=== PATIENT | female | born 1965 | race Caucasian/White ===

== ENCOUNTER → 2018-03-07 | Outpatient (CLI) | payer BC ==
[~2018-03-07] VITALS: Ht 171.4 cm; Wt 133.4 kg
[~2018-03-07] MED LIST: ADIPEX-P37.5 MG PO; FLONASEALLERGY NS; MUCINEX 60600 MG/TA1 PO; PROZAC40 MG PO; ZYRTEC 10MG10 MG PO
[2018-03-07 10:24] VITALS: BP 118/74; PULSE 68
== END ==
LOC: LIGHT 09:57
DX: F32.9 Major depressive disorder, single episode, unspecified (principal); E78.5 Hyperlipidemia, unspecified; E66.01 Morbid (severe) obesity due to excess calories; Z68.42 Body mass index [BMI] 45.0-49.9, adult; Z71.3 Dietary counseling and surveillance
CPT/HCPCS: G0463

== ENCOUNTER → 2018-04-09 | Outpatient (CLI) | payer BC | LOC: LIGHT 13:49 | DX: E78.5 Hyperlipidemia, unspecified (principal); F32.9 Major depressive disorder, single episode, unspecified; E66.01 Morbid (severe) obesity due to excess calories; Z68.42 Body mass index [BMI] 45.0-49.9, adult; Z71.3 Dietary counseling and surveillance ==

== ENCOUNTER → 2018-04-11 | Outpatient (CLI) | payer BC ==
[~2018-04-11] VITALS: Ht 171.4 cm; Wt 133.6 kg
[2018-04-11 15:27] VITALS: BP 116/82; PULSE 80
== END ==
LOC: LIGHT 15:22
DX: E78.5 Hyperlipidemia, unspecified (principal); F32.9 Major depressive disorder, single episode, unspecified; E66.01 Morbid (severe) obesity due to excess calories; Z68.42 Body mass index [BMI] 45.0-49.9, adult; Z71.3 Dietary counseling and surveillance
CPT/HCPCS: G0463

== ENCOUNTER → 2018-04-19 | Outpatient (CLI) | payer BC | LOC: BHSO 13:59 | DX: Z01.818 Encounter for other preprocedural examination (principal) ==

== ENCOUNTER → 2018-05-23 | Outpatient (CLI) | payer BC ==
[~2018-05-23] VITALS: Ht 171.4 cm; Wt 131.8 kg
[2018-05-23 10:05] VITALS: BP 108/70; PULSE 64
== END ==
LOC: LIGHT 09:58
DX: F32.9 Major depressive disorder, single episode, unspecified (principal); E78.5 Hyperlipidemia, unspecified; E66.01 Morbid (severe) obesity due to excess calories; Z68.42 Body mass index [BMI] 45.0-49.9, adult; Z71.3 Dietary counseling and surveillance
CPT/HCPCS: G0463

== ENCOUNTER → 2018-08-29 | Outpatient (CLI) | payer BC ==
[~2018-08-29] VITALS: Ht 171.4 cm; Wt 132.4 kg
[2018-08-29 09:55] VITALS: BP 126/76; PULSE 72
== END ==
LOC: LIGHT 06-27 11:22
DX: F32.9 Major depressive disorder, single episode, unspecified (principal); E78.5 Hyperlipidemia, unspecified; E66.01 Morbid (severe) obesity due to excess calories; Z68.42 Body mass index [BMI] 45.0-49.9, adult; Z71.3 Dietary counseling and surveillance
CPT/HCPCS: G0463

== ENCOUNTER → 2018-10-10 | Outpatient (CLI) | payer BC ==
[~2018-10-10] VITALS: Ht 171.4 cm; Wt 134.5 kg
[2018-10-10 14:50] VITALS: BP 140/86; PULSE 76
== END ==
LOC: LIGHT 13:28
DX: F32.9 Major depressive disorder, single episode, unspecified (principal); E78.5 Hyperlipidemia, unspecified; E66.01 Morbid (severe) obesity due to excess calories; Z68.42 Body mass index [BMI] 45.0-49.9, adult; Z71.3 Dietary counseling and surveillance
CPT/HCPCS: G0463

== ENCOUNTER → 2018-12-19 | Outpatient (CLI) | payer BC ==
[~2018-12-19] VITALS: Ht 171.4 cm; Wt 131.1 kg
[2018-12-19 10:05] VITALS: BP 142/86; PULSE 80
== END ==
LOC: LIGHT 11-14 13:15
DX: F32.9 Major depressive disorder, single episode, unspecified (principal); E78.5 Hyperlipidemia, unspecified; E66.01 Morbid (severe) obesity due to excess calories; Z68.41 Body mass index [BMI] 40.0-44.9, adult; Z71.3 Dietary counseling and surveillance
CPT/HCPCS: G0463

== ENCOUNTER → 2019-02-27 | Outpatient (CLI) | payer BC ==
[~2019-02-27] VITALS: Ht 171.4 cm; Wt 133.4 kg
[~2019-02-27] MED LIST changes: +TOPAMAX 25MG25 M1 PO
[2019-02-27 15:13] VITALS: BP 124/80; PULSE 84
== END ==
LOC: LIGHT 01-30 14:24
DX: F32.9 Major depressive disorder, single episode, unspecified (principal); E78.5 Hyperlipidemia, unspecified; E66.01 Morbid (severe) obesity due to excess calories; Z68.42 Body mass index [BMI] 45.0-49.9, adult; Z71.3 Dietary counseling and surveillance
CPT/HCPCS: G0463

== ENCOUNTER → 2019-05-15 | Outpatient (CLI) | payer BC ==
[~2019-05-15] VITALS: Ht 171.4 cm; Wt 131.8 kg
[2019-05-15 13:20] VITALS: BP 124/80; PULSE 60
== END ==
LOC: LIGHT 04-03 10:31
DX: F32.9 Major depressive disorder, single episode, unspecified (principal); E78.5 Hyperlipidemia, unspecified; E66.01 Morbid (severe) obesity due to excess calories; Z68.41 Body mass index [BMI] 40.0-44.9, adult; Z71.3 Dietary counseling and surveillance
CPT/HCPCS: G0463

== ENCOUNTER → 2019-05-23 | Outpatient (CLI) | payer BC | LOC: BHSO 08:59 | DX: F41.1 Generalized anxiety disorder (principal) ==

== ENCOUNTER → 2019-06-26 | Outpatient (CLI) | payer BC ==
[~2019-06-26] MED LIST changes: -TOPAMAX 25MG25 M1 PO; +TOPAMAX50 MG PO
== END ==
LOC: BHSO 09:03
DX: F41.1 Generalized anxiety disorder (principal)

== ENCOUNTER → 2019-07-29 | Outpatient (CLI) | payer BC | LOC: BHSO 14:58 | DX: F41.1 Generalized anxiety disorder (principal) ==

== ENCOUNTER → 2019-08-26 | Outpatient (CLI) | payer BC | LOC: BHSO 14:58 | DX: F41.1 Generalized anxiety disorder (principal) ==

== ENCOUNTER → 2019-09-02 | Outpatient (CLI) | payer BC | LOC: MC.RAD 07:30 | DX: Z12.31 Encounter for screening mammogram for malignant neoplasm of breast (principal) ==

== ENCOUNTER → 2020-04-08 | Outpatient (CLI) | payer BC ==
[~2020-04-08] VITALS: Ht 171.4 cm; Wt 129.0 kg
[2020-04-08 11:32] VITALS: BP 130/90; PULSE 80
== END ==
LOC: LIGHT 02-19 10:52
DX: E66.01 Morbid (severe) obesity due to excess calories (principal); Z68.41 Body mass index [BMI] 40.0-44.9, adult; E78.5 Hyperlipidemia, unspecified; F32.9 Major depressive disorder, single episode, unspecified
CPT/HCPCS: G0463

== ENCOUNTER → 2020-05-06 | Outpatient (CLI) | payer BC ==
[~2020-05-06] VITALS: Ht 171.4 cm; Wt 131.1 kg
[2020-05-06 13:58] VITALS: BP 128/70; PULSE 92
== END ==
LOC: LIGHT 14:00
DX: E66.01 Morbid (severe) obesity due to excess calories (principal); Z68.41 Body mass index [BMI] 40.0-44.9, adult; E78.5 Hyperlipidemia, unspecified
CPT/HCPCS: G0463

== ENCOUNTER 2023-10-16 06:43 | Day surgery (SDC) | payer BC ==
[~2023-10-16] VITALS: Ht 175.3 cm; Wt 117.9 kg
[~2023-10-16 06:43] MED LIST changes: +LR 1,000 ML IV SCH; +Ondansetron 4 MG/2 ML VIAL IV PRN
[2023-10-16] MEDS ORDERED: SINGULAIR 110 MG/TAB PO (07:29)
[2023-10-16] MEDS ORDERED: PROAIR DIGIHAL90 MCG IH (07:30)
--- NOTE | 2023-10-16 07:31 | NUR ---
Pt arrived with , escorted pt to bay 2, VS WNL with exception of BP which is elevated, pt states she last took her BP medication Sunday. Reviewed and signed consents; reviewed meds/pharm/allergies/history. Bowels are WNL for the procedure. IV to RFA, 22G, and LR hanging.
[2023-10-16 07:33] VITALS: BP 153/101; PULSE 76; TEMP 97.6
[2023-10-16] MEDS ORDERED: Glycopyrrolate 0.2 MG/ML 1 ML VIAL ONE (08:06)
[2023-10-16] MEDS ORDERED: Lidocaine PF 2% (20 MG/ML) 5 ML VIAL ONE (08:28)
[2023-10-16 08:45] VITALS: BP 146/88; PULSE 64; TEMP 97.6
[2023-10-16 09:00] VITALS: BP 135/85; PULSE 68
[2023-10-16 09:15] VITALS: BP 123/103; PULSE 61
--- NOTE | 2023-10-16 09:34 | NUR ---
0845- PATIENT RETURNS TO [facility] VIA CART. PT AWAKE AND ALERT. RESPIRATIONS UNLABORED. AMBULATED TO RECLINER CHAIR WITH 2:1 SBA. PT DENIES NAUSEA OR ABDOMINAL PAIN. HOOKED UP TO MONITOR AND VS OBTAINED. CALL LIGHT AT SIDE AND PRESENT. 0855- PATIENT TOLERATING CRANBERRY JUICE AND MUFFIN WITHOUT NAUSEA OR DIFFICULTY SWALLOWING. 0912- D/C INSTRUCTIONS REVIEWED WITH PATIENT. PT VERBALIZED UNDERSTANDING AND A COPY OF INSTRUCTIONS PROVIDED IN D/C FOLDER. 0918- DR. ROJAS IN ROOM SPEAKING WITH PATIENT. 0925- PATIENT DRESSES SELF. 0934- PATIENT DISCHARGED FROM UNIT VIA W/C TO A PERSONAL VEHICLE. PT LEFT HOSPITAL IN STABLE CONDITION.
== END 2023-10-16 09:34 | disposition home or self-care (01) ==
LOC: SDCO 06:43
DX: K29.50 Unspecified chronic gastritis without bleeding (principal); K21.00 Gastro-esophageal reflux disease with esophagitis, without bleeding; K63.5 Polyp of colon; D50.9 Iron deficiency anemia, unspecified; K44.9 Diaphragmatic hernia without obstruction or gangrene; K64.0 First degree hemorrhoids; Z80.0 Family history of malignant neoplasm of digestive organs; Z79.899 Other long term (current) drug therapy
CPT/HCPCS: J2704; J7120

== ENCOUNTER 2024-01-29 10:21 | Day surgery (SDC) | payer BC ==
[~2024-01-29] VITALS: Ht 170.2 cm; Wt 122.5 kg
[2024-01-29] VITALS (14 sets, daily range): BP systolic 152–170; BP diastolic 69–99; PULSE 69–88; TEMP 97.5–97.9
[~2024-01-29 10:21] MED LIST changes: -Ondansetron 4 MG/2 ML VIAL IV PRN; +PRIL40 PO; +PROAIR DIGIHAL90 MCG IH; +SINGULAIR 110 MG/TAB PO; +Scopolamine 1 MG Delivered 3-Day PATCH TD SCH
[2024-01-29] MEDS ORDERED: PROZAC 20MG20 MG PO (11:08)
[2024-01-29] MEDS ORDERED: TOPAMAX 25MG25 M1 PO (11:09)
[2024-01-29] MEDS ORDERED: TIROSINT25 MC1 PO (11:11)
[2024-01-29] MEDS ORDERED: LIPITOR 40MG TA40 MG PO (11:12)
[2024-01-29] MEDS ORDERED: MULTI VITAMINS1 TAB PO (11:14)
[2024-01-29] MEDS ORDERED: fentaNYL 50 MCG/ML 5 ML VIAL ONE (12:04)
[2024-01-29] MEDS ORDERED: Lidocaine PF 2% (20 MG/ML) 5 ML VIAL ONE (12:04)
[2024-01-29] MEDS ORDERED: Rocuronium 50 MG/5 ML Multi-Dose VIAL ONE ×2 (12:04→13:46)
[2024-01-29] MEDS ORDERED: Topical Skin Adhesive 1 EACH (1 ML) TOP ONE (12:15)
[2024-01-29 12:24] LABS: BASO # 0.1 K/mm3 (0.0-0.2); EOS # 0.4 K/mm3 (0.0-0.7); EOS % 5.2 % (0.0-4.0); GRAN # 3.7 K/mm3 (1.4-6.5); GRAN % 51.9 % (42.2-75.2); HEMOGLOBIN 11.4 g/dl (12.5-16.0); LYMPH # 2.2 K/mm3 (1.2-3.4); LYMPH % 30.4 % (20.0-51.0); MEAN CELL VOLUME 90 fl (80.0-100.0); MEAN CORPUSCULAR HEMOGLOBIN 29 pg (27-31); MEAN CORPUSCULAR HGB CONC 33 g/dl (33.0-37.0); MEAN PLATELET VOLUME 8.7 fl (7.4-10.4); MONO # 0.8 K/mm3 (0.1-0.6); MONO % 11.4 % (1.7-9.3); PLATELET COUNT 341 K/mm3 (130-400); RED BLOOD COUNT 3.92 M/mm3 (4.10-5.30)
[2024-01-29 12:27] LABS: HEMATOCRIT 35.1 % (37.0-47.0)
[2024-01-29 12:30] LABS: CALCIUM 9.6 mg/dL (8.4-10.2); CREATININE, serum 0.79 mg/dL (0.57-1.11); POTASSIUM 3.8 mEq/L (3.5-4.5)
[2024-01-29] MEDS ORDERED: fentaNYL 50 MCG/ML 1 ML SYRINGE/VIAL [PACU/SDC ONLY] IV PRN (12:30)
[2024-01-29] MEDS ORDERED: Ondansetron 4 MG/2 ML VIAL IV PRN ×2 (12:30→16:15)
[2024-01-29] MEDS ORDERED: hydrALAZINE 20 MG/ML 1 ML VIAL IV PRN (12:30)
[2024-01-29] MEDS ORDERED: Meperidine 50 MG/ML 1 ML VIAL IV PRN (12:30)
[2024-01-29] MEDS ORDERED: HYDROmorphone 1 MG/1 ML SYRINGE [PACU/SDC ONLY] IV PRN (12:30)
[2024-01-29] MEDS ORDERED: Ondansetron 4 MG/2 ML VIAL ONE (12:58)
[2024-01-29] MEDS ORDERED: dexAMETHasone 10 MG/ML VIAL ONE (12:58)
[2024-01-29] MEDS ORDERED: diphenhydrAMINE 50 MG/ML 1 ML VIAL ONE (13:07)
[2024-01-29] MEDS ORDERED: Labetalol 100 MG/20 ML Multi-Dose VIAL ONE (13:14)
[2024-01-29] MEDS ORDERED: Glycopyrrolate 0.2 MG/ML 1 ML VIAL ONE (13:52)
[2024-01-29] MEDS ORDERED: LR 1,000 ML IV ONE (14:26)
[2024-01-29] MEDS ORDERED: Ketorolac 30 MG/ML VIAL ONE (14:26)
--- NOTE | 2024-01-29 16:05 | NUR ---
Pt up to surgical floor from OR. Pt awake, alert and oriented. C/O left shoulder pain, rating 8/10. Declines pain medication at this time, states she does not want to be drowsy. Heat helps pain. Steady on feet, ambulates x2 to bathroom to void, no difficulty voiding. States she has been belching. Tolerating ice chips, denies nausea. x6 sites to abdomen, glue, C/D/I. Bed in lowest position with call light within reach.
[2024-01-29] MEDS ORDERED: oxyCODONE 5 MG TAB PO PRN (16:15)
[2024-01-29] MEDS ORDERED: HYDROmorphone 0.5 MG/0.5 ML SYRINGE IV PRN (16:15)
[2024-01-29] MEDS ORDERED: LR 1,000 ML IV SCH (16:15)
[2024-01-29] MEDS ORDERED: Naloxone 0.4 MG/ML VIAL IV PRN (16:15)
[2024-01-29] MEDS ORDERED: Ibuprofen 600 MG TAB PO SCH (20:12)
[2024-01-29] MEDS ORDERED: Gabapentin 100 MG CAP PO SCH (21:00)
--- NOTE | 2024-01-29 21:21 | NUR ---
SHIFT ASSESSMENT COMPLETE. PATIENT RESTING IN BED ON ARRIVAL. ALL NIGHT MEDS GIVEN PER ORDERS. ADVISED PATIENT THAT SHE WILL NEED TO START WALKING EVERY COUPLE HOURS TO HELP WITH GAS PAINS IN LFT SHOULDER, PATIENT AGREED. PATIENT THEN AMBULATED TO RESTROOM AND WENT FOR A WALK. PATIENT DID GET SLIGHTLY NAUSOUS DURING HER WALK BUT IT THEN WENT AWAY AFTER SITTING FOR A FEW MINUTES. PATIENT THEN WENT FOR ANOTHER COUPLE WALKS ANS STATED IT WAS HELPING WITH THE PAIN. PATIENT HAS NO REQUEST AT THIS TIME. CALL LIGHT IN REACH
[2024-01-30] VITALS (7 sets, daily range): BP systolic 132–153; BP diastolic 72–88; PULSE 66–78; TEMP 97.8–98
--- NOTE | 2024-01-30 00:13 | NUR ---
PATIENT UNABLE TO SLEEP DUE TO HEADACHE AND FEELING OF NAUSEA. GAVE PATIENT ZOFRAN FOR NAUSEA AND PLACED PATIENT BACK ON FLUIDS DUE TO HER NOT DRINKING ENOUGH FLUIDS. ADVISED PATIENT TO HOLD OFF ON WALKING THE HALLS TILL NAUSEA AND DIZZINESS SUBSIDES. WILL CONTINUE TO MONITOR.
--- NOTE | 2024-01-30 04:44 | NUR ---
PATIENT UP AMBULATING QUINTERO, PATIENT STAES SHE FEELS BETTER AND NAUSEA HAS SUBSIDED FOR NOW.
[2024-01-30 06:27] LABS: BASO % 0.2 % (0.0-2.0); EOS % 0.1 % (0.0-4.0); GRAN # 9.7 K/mm3 (1.4-6.5); GRAN % 72.8 % (42.2-75.2); LYMPH # 2.2 K/mm3 (1.2-3.4); LYMPH % 16.9 % (20.0-51.0); MEAN CELL VOLUME 89 fl (80.0-100.0); MEAN CORPUSCULAR HEMOGLOBIN 29 pg (27-31); MEAN CORPUSCULAR HGB CONC 32 g/dl (33.0-37.0); MEAN PLATELET VOLUME 8.7 fl (7.4-10.4); MONO # 1.3 K/mm3 (0.1-0.6); MONO % 9.7 % (1.7-9.3); PLATELET COUNT 292 K/mm3 (130-400); RED BLOOD COUNT 3.82 M/mm3 (4.10-5.30); REDCELL DISTRIBUTION WIDTH-CV 13.9 % (11.5-14.5)
[2024-01-30 06:37] LABS: HEMATOCRIT 34.1 % (37.0-47.0)
[2024-01-30 06:49] LABS: CALCIUM 9.2 mg/dL (8.4-10.2); CREATININE, serum 0.79 mg/dL (0.57-1.11); PHOSPHOROUS 2.8 mg/dL (2.3-4.7); POTASSIUM 3.7 mEq/L (3.5-4.5)
[2024-01-30] MEDS ORDERED: Omeprazole 40 MG **** subs to Pantoprazole 40 MG PO SCH (07:49)
[2024-01-30] MEDS ORDERED: Fluticasone Nasal 50 MCG/Spray 16 GM BOTTLE NS PRN (08:00)
--- NOTE | 2024-01-30 08:16 | NUR ---
Patient awake, alert and oriented. States shoulder pain is improving but starting to have some tenderness around lap sites. Ambulating frequently in room and in hallway. Denies passing gas but states she felt the urge to have a BM last night, was not able to go. Tolerating clear liquids this AM. AM medications and PRN pain medication given this AM. Bed in lowest position with call light within reach.
--- NOTE | 2024-01-30 08:41 | NUR ---
Orthotics Prosthetics Technician met with patient to discuss discharge planning. Patient lives in [place], [place] with her , Terrence (ph#[phone]) and sees Dr. Chanel for primary care. Patient gets her medications from [facility] with no difficulties and does not use any DME. Patient has [employer] [place] and is employed by the [facility] [facility] [employer]. Patient is independent with ADLS and plans to return home at time of discharge. Patient stated she has Advance Directives completed at home, she just does not have a copy with her. Per patient, Terrence is DPOA-HC. Discharge Plan: Home
[2024-01-30] MEDS ORDERED: FLUoxetine 20 MG CAP PO SCH (09:00)
[2024-01-30] MEDS ORDERED: Topiramate 25 MG TAB PO SCH (09:00)
[2024-01-30] MEDS ORDERED: Atorvastatin 40 MG TAB PO SCH (09:00)
[2024-01-30] MEDS ORDERED: Multivitamin TAB PO SCH (09:00)
[2024-01-30] MEDS ORDERED: Montelukast 10 MG TAB PO SCH (09:00)
[2024-01-30] MEDS ORDERED: MOTRIN 600600 MG/TAB PO (09:59)
[2024-01-30] MEDS ORDERED: ROXICODONE 55 MG/TAB PO (10:00)
[2024-01-30] MEDS ORDERED: TYLENOL 8 HR PO (10:01)
[2024-01-30] MEDS ORDERED: ZOFRAN ODT4 MG PO (10:01)
--- NOTE | 2024-01-30 13:36 | NUR ---
Data: Patient accepted spiritual care visit offered during Chairman & Chief Executive Officer rounds. Patient is hoping to discharge by 2 p.m. today. Assessment: Patient is hopeful; grateful for family and friends who have been very supportive during her hospital stay. Plan of Care: Chairman & Chief Executive Officer provided supportive listening and prayer. Patient thanked Chairman & Chief Executive Officer for the visit. Chaplains will remain available as needed/requested while Patient is admitted to this hospital.
--- NOTE | 2024-01-30 14:29 | NUR ---
Patient discharged to home, educated on discharge instructions and new medications. Pt verbalized understanding. IV removed prior to discharge, catheter tip intact. Picked up by friend. Assisted to car via wheelchair by nursing staff. All belongings sent home with patient.
== END 2024-01-30 14:33 | disposition home or self-care (01) ==
LOC: SDCO 10:21 → SURG 16:07 → SDCO 01-30 14:33
PROVIDERS: Surgery
DX: K44.9 Diaphragmatic hernia without obstruction or gangrene (principal); K21.9 Gastro-esophageal reflux disease without esophagitis; E66.01 Morbid (severe) obesity due to excess calories; J45.909 Unspecified asthma, uncomplicated; Z79.899 Other long term (current) drug therapy; Z68.41 Body mass index [BMI] 40.0-44.9, adult
CPT/HCPCS: OP; A9284; J0690; J1100; J1170; J1200; J1650; J1885; J1920; J2405; J2704; J3010; J7120